=== PATIENT | male | born 1955 | race Caucasian/White ===

== ENCOUNTER → 2023-12-08 | Outpatient (CLI) | payer MEDICARE ==
--- NOTE | 2023-12-15 23:42 | MR ---
EXAMINATION TYPE: MR shoulder RT wo con DATE OF EXAM: 12/08/2023 COMPARISON: None. HISTORY: Right shoulder pain x1 year. Rotator cuff tear. TECHNIQUE: Multiplanar, multisequence imaging of the right shoulder is performed without contrast. FINDINGS: Rotator Cuff: Increased signal distal supraspinatus tendon. Infraspinatus tendon intact. Heterogeneit y with at least significant partial tearing of the subscapularis tendon. Mild muscular atrophy of the subscapularis. Acromioclavicular Joint: Moderate narrowing and capsular hypertrophy. No significant spurring. Glenohumeral Joint: Moderate sized joint effusion. No significant spurring. Moderate narrowing. Labrum: The labrum appears grossly intact given limitation of non-arthrogram study. Biceps Tendon: The long head of biceps is dislocated anterior medial from the normal location in the bicipital groove. Bone marrow signal: Subchondral cystic change involving the superior aspect of the humeral head in th e inferior aspect of the humerus. Other: No additional significant abnormality is appreciated. IMPRESSION: 1. Anterior medial dislocation of long head of biceps from the bicipital groove. 2. At least significant partial tearing of the subscapularis tendon. 3. Tendinosis of the supraspinatus tendon. 4. 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
== END | disposition home or self-care (01) ==
LOC: RADMRIMAIN 21:45
PROVIDERS: ATTEND Orthopaedic Surgery Hand Surgery
DX: M75.111 Incomplete rotator cuff tear or rupture of right shoulder, not specified as traumatic (principal); M19.011 Primary osteoarthritis, right shoulder; S46.011A Strain of muscle(s) and tendon(s) of the rotator cuff of right shoulder, initial encounter; M67.813 Other specified disorders of tendon, right shoulder